=== PATIENT | male | born 2000 | race Caucasian/White ===

== ENCOUNTER 2018-03-29 01:53 | Emergency (ER) | payer BC ==
[2018-03-29] MEDS ORDERED: Ondansetron HCl/PF 4 MG/2 ML Vial ONE (02:10)
[2018-03-29 02:57] LABS: #Basophils 0.1 thou/uL (0.0-0.2); #Eosinphils 0.1 thou/uL (0.0-0.7); #Lymphocytes 4.2 thou/uL (1.20-3.40); #Monocytes 0.6 thou/uL (0.11-0.59); #Neutrophils 4.2 thou/uL (1.40-6.50); %Basophils 0.8 % (0.0-1.0); %Eosinophils 0.8 % (0.0-10.0); %Lymphocytes 45.8 % (28.0-48.0); %Monocytes 6.6 % (0.0-4.0); %Neutrophils 45.9 % (31.0-61.0); Hemoglobin 14.9 g/dL (14.0-18.0); Mean Corpuscular HGB CONC 34.6 g/dL (32.0-36.0); Mean Corpuscular Hemoglobin 32.4 pg (25.0-35.0); Mean Corpuscular Volume 93.5 fL (78.0-98.0); Mean Platelet Volume 6.5 fL (7.4-10.4); Platelet Count 270 thou/uL (130-400); RBC Distribution Width 11.7 % (11.5-14.5); Red Blood Cell (RBC) Count 4.59 mill/uL (4.00-5.20); White Blood Cell (WBC) Count 9.2 thou/uL (4.8-10.8)
[2018-03-29 03:19] LABS: ALT (SGPT) 21 U/L (8-55); AST (SGOT) 16 U/L (5-34); Albumin 4.4 g/dL (3.5-5.0); Alcohol 251 mg/dL (Less than 10); Alkaline Phosphatase 46 U/L (Less than 750); Anion Gap 16 mmol/L (10-20); BUN (Urea Nitrogen) 13 mg/dL (8.9-20.6); Bilirubin, Total 0.3 mg/dL (0.2-1.2); Calc. Creatinine Clearance 0 mL/min (70-130); Calcium 8.5 mg/dL (7.8-10.44); Carbon Dioxide 22 mmol/L (22-29); Chloride 110 mmol/L (98-107); Estimated GFR-MDRD Greater than 90; Globulin 2.6 g/dL (2.4-3.5); Glucose 145 mg/dL (70-105); Potassium 3.2 mmol/L (3.5-5.1); Sodium 145 mmol/L (136-145)
[2018-03-29] MEDS ORDERED: Metoclopramide HCl 10 MG/2 ML VIAL ONE (03:19)
--- NOTE | 2018-03-29 12:26 | CT ---
PRELIMINARY REPORT/[facility]/EMERGENTY AFTER-HOURS PROCEDURE CT Cervical Spine Without Intravenous Contrast CLINICAL HISTORY: 18 years old, male; Injury or trauma; Fall; Initial encounter; Abrasion; Patient HX: Pt was leaving b ar at and fell and hit back of head, 1 inch lac to back of head. Vomited on self. A&o x 1 TECHNIQUE: Axial computed tomography images of the cervical spine without intravenous contrast. COMPARISON: No relevant prior studies available. FINDINGS: Vertebrae: No acute findings. No acute fracture. Discs/spinal canal/neural foramina: No acute findings. No spinal canal stenosis. Soft tissues: No acute findings. Lung apices: Unremarkable as visualized. IMPRESSION: No acute fracture or dislocation. Thank you for allowing us to participate in the care of your patient. Dictated and Authenticated by: David Portillo MD 03/29/2018 3:00 AM Central Time ([place] & [place]) FINAL REPORT EMERGENCY AFTER HOURS CT CERVICAL SPINE: Date: 03/29/18 IMPRESSION: I agree with the preliminary interpretation given by Isai. No evidence for fracture or traumatic subluxation. POS: [facility]
--- NOTE | 2018-03-29 12:27 | CT ---
PRELIMINARY REPORT/[facility]/EMERGENTY AFTER-HOURS PROCEDURE CT Head Without Intravenous Contrast CLINICAL HISTORY: 18 years old, male; Injury or trauma; Fall; Initial encounter; Abrasion; Not specified; Patient HX: Keith t was leaving bar at and fell and hit back of head, 1 inch lac to back of head. Vomited on self. A &o x 1 TECHNIQUE: Axial computed tomography images of the head/brain without intravenous contrast. COMPARISON: No relevant prior studies available. FINDINGS: Brain: No acute findings. No hemorrhage. No significant white matter disease. No edema. Ventricles: No acute findings. No ventriculomegaly. Bones/joints: No acute findings. No acute fracture. Soft tissues: Posterior vertex scalp hematoma without skull fracture. Sinuses: Unremarkable as visualized. No acute sinusitis. Mastoid air cells: Unremarkable as visualized. No mastoid effusion. IMPRESSION: No acute intracranial pathology. Posterior vertex scalp hematoma without skull fracture. Thank you for allowing us to participate in the care of your patient. Dictated and Authenticated by: David Portillo MD 03/29/2018 3:01 AM Central Time ([place] & [place]) FINAL REPORT EMERGENCY AFTER HOURS CT BRAIN: Date: 03/29/18 IMPRESSION: I agree with the preliminary interpretation given by Isai. No evidence for intracranial hemorrhage or mass effect. POS: [facility]
== END 2018-03-29 07:09 | disposition home or self-care (01) ==
LOC: ERS 01:53
DX: S01.01XA Laceration without foreign body of scalp, initial encounter (principal); F10.129 Alcohol abuse with intoxication, unspecified; W17.89XA Other fall from one level to another, initial encounter
CPT/HCPCS: 12001; 36415; 70450; 72125; 80053; 80307; 85025; 96365; 96375; J2405; J2765